=== PATIENT | female | born 1995 | race Hispanic/Latino ===

== ENCOUNTER 2018-09-05 10:51 | Emergency (ER) | payer OTHER ==
[2018-09-05 11:58] LABS: HCG,QUAL RESULT NEGATIVE (NEGATIVE)
[2018-09-05 11:59] LABS: APPEARANCE,URINE Clear (CLEAR); BILIRUBIN,URINE Negative (NEGATIVE); COLOR,URINE Yellow (YELLOW); GLUCOSE, URINE (UA) Negative (NEGATIVE); KETONES,URINE Negative (NEGATIVE); LEUKOCYTE ESTERASE ,URINE Negative (NEGATIVE); NITRATE,URINE Negative (NEGATIVE); OCCULT BLOOD,URINE Negative (NEGATIVE); PROTEIN,URINE Negative (NEGATIVE); UROBILINOGEN,URINE 0.2 mg/dL (0.2-1.0)
[2018-09-05] MEDS ORDERED: KETOROLAC TROMETHAMINE 60 MG/2 ML VIAL ONE (12:04)
== END 2018-09-05 12:33 | disposition home or self-care (01) ==
LOC: EDH 10:51
DX: M54.5 Low back pain (principal); Z98.890 Other specified postprocedural states
CPT/HCPCS: 72100; 81003; 81025; 96372; 99285; J1885

== ENCOUNTER 2018-11-14 15:43 | Emergency (ER) | payer OTHER ==
[2018-11-14 16:29] LABS: APPEARANCE,URINE Cloudy (CLEAR); BILIRUBIN,URINE Negative (NEGATIVE); COLOR,URINE Yellow (YELLOW); GLUCOSE, URINE (UA) Negative (NEGATIVE); HCG,QUAL RESULT NEGATIVE (NEGATIVE); KETONES,URINE Negative (NEGATIVE); LEUKOCYTE ESTERASE ,URINE Negative (NEGATIVE); NITRATE,URINE Negative (NEGATIVE); OCCULT BLOOD,URINE Negative (NEGATIVE); PROTEIN,URINE Negative (NEGATIVE); UROBILINOGEN,URINE 0.2 mg/dL (0.2-1.0)
[2018-11-14 16:39] LABS: BACTERIA,URINE Few /HPF (None Seen); RBC,URINE None Seen /HPF (0-1); WBC,URINE None Seen /HPF (0-1)
[2018-11-14] MEDS ORDERED: ORPHENADRINE CITRATE 30 MG/ML ML ONE (17:28)
[2018-11-14] MEDS ORDERED: KETOROLAC TROMETHAMINE 30MG/ML ONE (17:28)
== END 2018-11-14 17:49 | disposition home or self-care (01) ==
LOC: EDH 15:43
DX: S00.83XA Contusion of other part of head, initial encounter (principal); S60.042A Contusion of left ring finger without damage to nail, initial encounter; Z91.013 Allergy to seafood; V49.49XA Driver injured in collision with other motor vehicles in traffic accident, initial encounter; Y93.89 Activity, other specified; Y92.89 Other specified places as the place of occurrence of the external cause; Y99.8 Other external cause status
CPT/HCPCS: 70450; 73130; 81001; 81025; 96372 ×2; 99284; J1885; J2360

== ENCOUNTER 2022-02-02 10:29 | Observation (INO) | payer OTHER, MEDICAID ==
[~2022-02-02] VITALS: Ht 160 cm; Wt 126.6 kg
[~2022-02-02 10:29] MED LIST: CEPH500B PO
[2022-02-02] MEDS ORDERED: CELESTONE SOLUSPAN 6 MG/ML 5ML VIAL IM SCH (11:30)
[2022-02-02 11:34] LABS: APPEARANCE,URINE Cloudy (CLEAR); BILIRUBIN,URINE Negative (NEGATIVE); COLOR,URINE Yellow (YELLOW); GLUCOSE, URINE (UA) Negative (NEGATIVE); KETONES,URINE Negative (NEGATIVE); LEUKOCYTE ESTERASE ,URINE Moderate (NEGATIVE); NITRATE,URINE Negative (NEGATIVE); OCCULT BLOOD,URINE Negative (NEGATIVE); PH,URINE 6.5 (5.0-8.0); PROTEIN,URINE Negative (NEGATIVE); UROBILINOGEN,URINE 0.2 mg/dL (0.2-1.0)
[2022-02-02] MEDS ORDERED: CELESTONE SOLUSPAN 6 MG/ML 5ML VIAL ONE (11:53)
[2022-02-02 12:05] LABS: BACTERIA,URINE Moderate /HPF (None Seen); RBC,URINE 0-1 /HPF (0-1)
[2022-02-02] MEDS: LACTATED RINGERS 1000ML 1,000 ML IV PRN (21:55)
[2022-02-03] MEDS: LACTATED RINGERS 1000ML 1,000 ML IV PRN ×2 (02:32→06:58)
== END 2022-02-03 11:18 | disposition home or self-care (01) ==
LOC: INTOOBSV 10:29 → LDH 10:29
PROVIDERS: ADMIT Specialist; ATTEND Specialist
DX: O42.913 Preterm premature rupture of membranes, unspecified as to length of time between rupture and onset of labor, third trimester (principal); Z3A.34 34 weeks gestation of pregnancy
CPT/HCPCS: 59025; 76819; 81001; 87088; 96360; 96361 ×3; 96372; G0378 ×24; J0702; J7120 ×2

== ENCOUNTER 2022-02-05 05:17 | Observation (INO) | payer OTHER, MEDICAID ==
[~2022-02-05] VITALS: Ht 160 cm; Wt 1265.1 kg
[2022-02-05 05:19] VITALS: BP 122/53
[2022-02-05 05:57] LABS: APPEARANCE,URINE Clear (CLEAR); BILIRUBIN,URINE Negative (NEGATIVE); COLOR,URINE Yellow (YELLOW); GLUCOSE, URINE (UA) Negative (NEGATIVE); KETONES,URINE Negative (NEGATIVE); LEUKOCYTE ESTERASE ,URINE Negative (NEGATIVE); NITRATE,URINE Negative (NEGATIVE); OCCULT BLOOD,URINE Negative (NEGATIVE); PH,URINE 6.5 (5.0-8.0); PROTEIN,URINE Negative (NEGATIVE); UROBILINOGEN,URINE 0.2 mg/dL (0.2-1.0)
== END 2022-02-05 06:45 | disposition home or self-care (01) ==
LOC: EDH 05:17 → LDH 05:18 → EDH 05:26
PROVIDERS: ADMIT Specialist; ATTEND Specialist
DX: O36.8130 Decreased fetal movements, third trimester, not applicable or unspecified (principal); O26.893 Other specified pregnancy related conditions, third trimester; K59.00 Constipation, unspecified; Z3A.34 34 weeks gestation of pregnancy
CPT/HCPCS: 59025; 81003; G0378; G0379

== ENCOUNTER 2022-02-23 06:53 | Observation (INO) | payer OTHER, MEDICAID ==
[~2022-02-23] VITALS: Ht 160 cm; Wt 126.6 kg
[2022-02-23 06:55] VITALS: BP 132/65
[2022-02-23 07:43] LABS: APPEARANCE,URINE CLEAR (CLEAR); BILIRUBIN,URINE NEGATIVE (NEGATIVE); COLOR,URINE YELLOW (YELLOW); GLUCOSE, URINE (UA) NEGATIVE (NEGATIVE); KETONES,URINE NEGATIVE (NEGATIVE); LEUKOCYTE ESTERASE ,URINE NEGATIVE (NEGATIVE); NITRATE,URINE NEGATIVE (NEGATIVE); OCCULT BLOOD,URINE NEGATIVE (NEGATIVE); PROTEIN,URINE NEGATIVE (NEGATIVE); UROBILINOGEN,URINE 0.2 mg/dL (0.2-1.0)
[2022-03-08] MEDS ORDERED: FAMO20TA8 PO (00:06)
[2022-03-08] MEDS ORDERED: PREN1COM14 PO (00:06)
[2022-03-09] MEDS ORDERED: ACET-2079 PO (10:23)
== END 2022-02-23 08:37 | disposition home or self-care (01) ==
LOC: EDH 06:53 → LDH 06:54
PROVIDERS: ADMIT Specialist; ATTEND Specialist
DX: O42.913 Preterm premature rupture of membranes, unspecified as to length of time between rupture and onset of labor, third trimester (principal); Z3A.36 36 weeks gestation of pregnancy
CPT/HCPCS: 59025; 76819; 81003; 82120; G0378; G0379

== ENCOUNTER 2022-03-14 07:41 | Emergency (ER) | payer OTHER, MEDICAID ==
[~2022-03-14] VITALS: Ht 160 cm; Wt 125.2 kg
[~2022-03-14 07:41] MED LIST changes: +ACET-2079 PO; -CEPH500B PO; +PREN1COM14 PO
[2022-03-14 07:48] VITALS: BP 110/72
[2022-03-14] MEDS ORDERED: SULF1TAB42 PO (08:08)
[2022-03-14] MEDS ORDERED: ACET-2079 PO (08:08)
== END 2022-03-14 08:46 | disposition home or self-care (01) ==
LOC: EDH 07:41
DX: O90.0 Disruption of cesarean delivery wound (principal); R10.30 Lower abdominal pain, unspecified

== ENCOUNTER 2024-04-12 10:17 | Emergency (ER) | payer MEDICAID, OTHER ==
[~2024-04-12] VITALS: Ht 162.6 cm; Wt 126.6 kg
[~2024-04-12 10:17] MED LIST changes: +SULF1TAB42 PO
[2024-04-12 11:10] LABS: APPEARANCE,URINE CLOUDY (CLEAR); BILIRUBIN,URINE NEGATIVE (NEGATIVE); COLOR,URINE LIGHT-YELLOW (YELLOW); GLUCOSE, URINE (UA) NEGATIVE (NEGATIVE); KETONES,URINE NEGATIVE (NEGATIVE); LEUKOCYTE ESTERASE ,URINE 500 Leu/uL (NEGATIVE); NITRATE,URINE NEGATIVE (NEGATIVE); OCCULT BLOOD,URINE NEGATIVE (NEGATIVE); PH,URINE 5.5 (5.0-8.0); PROTEIN,URINE NEGATIVE (NEGATIVE); UROBILINOGEN,URINE 0.2 mg/dL (0.2-1.0)
[2024-04-12 11:19] LABS: ADD UA MICROSCOPIC YES
[2024-04-12 11:25] LABS: BACTERIA,URINE MOD /HPF (None Seen); MUCUS,URINE RARE LPF (None Seen); SQUAMOUS EPITHELIAL CELL,UR MOD /HPF (0-2)
[2024-04-12 11:29] LABS: BASOPHILS # (AUTO) 0.05 K/uL (0.00-0.20); BASOPHILS % (AUTO) 0.4 % (0.0-5.0); EOSINOPHILS # (AUTO) 0.23 K/uL (0.00-0.70); HEMATOCRIT 38.6 % (36-48); IMMATURE GRANULOCYTE ABSOLUTE 0.11 K/uL (0-1); LYMPHOCYTES # (AUTO) 2.7 K/uL (1.0-4.8); LYMPHOCYTES % (AUTO) 22.7 % (21.0-51.0); MEAN CORPUSCULAR HEMOGLOBIN 23.5 pg (27.0-33.0); MEAN CORPUSCULAR HGB CONC 31.9 g/dL (32.0-36.0); MEAN CORPUSCULAR VOLUME 73.7 fL (79-99); MONOCYTES # (AUTO) 0.9 K/uL (0.1-1.0); MONOCYTES % (AUTO) 7.9 % (3.0-13.0); NEUTROPHILS # (AUTO) 7.7 K/uL (1.8-7.7); NEUTROPHILS % (AUTO) 66.1 % (40.0-77.0); PLATELET COUNT (AUTO) 469 K/uL (130-400); RED BLOOD CELL COUNT(AUTO) 5.24 MIL/uL (4.00-5.50); RED CELL DISTRIBUTION WIDTH 15.9 % (11.0-15.5); WHITE BLOOD COUNT (AUTO) 11.7 K/uL (4.8-10.8)
[2024-04-12 11:49] LABS: CREATININE 0.8 mg/dL (0.5-1.0); POTASSIUM 4.5 mmol/L (3.5-5.1)
[2024-04-12 11:54] LABS: ALBUMIN 3.5 g/dL (3.5-5.0); BILIRUBIN,TOTAL 0.2 mg/dL (0.2-1.0); TOTAL PROTEIN, SERUM 7.8 g/dL (6.0-8.3)
[2024-04-12 12:29] VITALS: BP 129/65; PULSE 72; RESP 15
[2024-04-12] MEDS: ONDANSETRON ODT 4MG TAB SL ONE (12:42)
[2024-04-12] MEDS: CEFTRIAXONE 1G VIAL IM ONE (12:42)
[2024-04-12] MEDS ORDERED: ONDA4TAB10 PO (15:27)
[2024-04-12] MEDS ORDERED: NITR100C PO (15:27)
[2024-04-12] MEDS ORDERED: PHEN-846 PO ×2 (15:27→16:59)
[2024-04-12] MEDS ORDERED: FLUC200T PO (15:29)
[2024-04-12] MEDS ORDERED: FLUC100T PO (16:59)
== END 2024-04-12 15:44 | disposition home or self-care (01) ==
LOC: EDH 10:17
DX: R10.2 Pelvic and perineal pain (principal); R10.31 Right lower quadrant pain
CPT/HCPCS: 99285; 76857; 80053; 85025; 87088; 81001; 81025; 36415; 96372; J0696

== ENCOUNTER 2025-04-09 23:03 | Emergency (ER) | payer SELFPAY ==
[~2025-04-09] VITALS: Ht 160 cm; Wt 123.4 kg
[~2025-04-09 23:03] MED LIST changes: +FLUC100T PO; +NITR100C PO; +ONDA-243 PO; +PHEN-846 PO
--- NOTE | 2025-04-09 23:06 | ERN ---
ED Note History of Present Illness Stated Complaint: DIZZINESS, FEELS LIKE PASSING OUT AFTER EATING MENA Chief Complaint: Dizzy/Light Headed Time Seen by MD: 23:06 Time Seen by Midlevel: 23:06 Dictation: Ms. Palafox is a 30-year-old female with history of depression who was transported via EMS to the emergency department this evening for evaluation dizziness. She states that she was out with her girlfriends and had a small bite of a THC gummy. She states that she immediately felt anxious and dizzy. She states "I felt like passing out" and got very nauseated. She states she has a history of depression and takes sertraline. She denies having fever, chills, shortness of breath, cough, chest pain, palpitations, edema, abdominal pain, vomiting, diarrhea, dysuria, headache, or seizure. Allergies: Coded Allergies: No Known Drug Allergies (Unverified Allergy, Unknown, 02/02/22) Emergency Care [place]: None Home Meds Active Scripts Ondansetron (Ondansetron Odt) 4 Mg Tab.rapdis, 4 MG PO Q6HPRN PRN for nausea, #15 TAB 0 Refills Prov:MAXWELL VILLARREAL NP 04/10/25 Ondansetron (Ondansetron Odt) 4 Mg Tab.rapdis, 4 MG PO Q6HPRN PRN for nausea, #15 TAB 0 Refills Prov:MAXWELL VILLARREAL NP 04/12/24 Phenazopyridine HCl (Pyridium) 100 Mg Tab, 100 MG PO q8hour PRN, #10 TAB 0 Refil ls Prov:MAXWELL VILLARREAL NP 04/12/24 Nitrofurantoin Macrocrystal (Nitrofurantoin) 100 Mg Capsule, 100 MG PO BID for 7 Days, #14 CAP 0 Refills Prov:MAXWELL VILLARREAL NP 04/12/24 Fluconazole (Diflucan) 100 Mg Tablet, 150 MG PO ONCE, #1 TAB 1 Refill Prov:MAXWELL VILLARREAL NP 04/12/24 Acetaminophen with Codeine (Acetaminophen-Cod #3 Tablet) 1 Each Tablet, 1-2 TAB PO Q6H PRN for SEVERE PAIN (7-10), #12 TAB 0 Refills Prov:BELEM STILES MD 03/14/22 Sulfamethoxazole/Trimethoprim (Bactrim Ds Tablet) 1 Each Tablet, 1 TAB PO BID for 7 Days, #14 TAB 0 Refills Prov:BELEM STILES MD 03/14/22 Reported Medications Acetaminophen with Codeine (Acetaminophen-Cod #3 Tablet) 1 Each Tablet, 1-2 EACH PO Q4-6, #20 TAB 03/09/22 Cmb#95/Iron/FA/Dha ( + Dha Combo Pack) 1 Each Combo..pkg, 1 EACH PO AM, COMB.PKG 03/08/22 Past Medical History Past Medical History: No Pertinent History Surgical History: Social History: Negative, Other : 2 Para: 1 Aborts: 1 RN Note Reviewed/Agreed w/PFSH: Yes Review of System Dictation REVIEW OF SYSTEMS: CONSTITUTIONAL: Patient denies fevers, chills, sweats and weight changes. Reports fatigue and general weakness. EYES: Patient denies any visual symptoms. EARS, NOSE, AND THROAT: No difficulties with hearing. No symptoms of rhinitis or sore throat. CARDIOVASCULAR: Patient denies chest pains, palpitations, orthopnea and paroxysmal nocturnal dyspnea. RESPIRATORY: No dyspnea on exertion, no wheezing or cough. GI: No vomiting, diarrhea, constipation, abdominal pain, hematochezia or melena. Reported nausea : No urinary hesitancy or dribbling. No nocturia or urinary frequency. No abnormal urethral discharge. MUSCULOSKELETAL: No myalgias or arthralgias. NEUROLOGIC: No chronic headaches, no seizures. Patient denies numbness, tingling or weakness. PSYCHIATRIC: Patient denies problems with mood disturbance. Reported feeling anxious after taking THC gummy. ENDOCRINE: No excessive urination or excessive thirst. DERMATOLOGIC: Patient denies any rashes or skin changes. Initial Vital Sign VS Vital Signs Date Time Temp Pulse Resp B/P (MAP) Pulse Ox O2 Delivery O2 Flow Rate FiO2 04/09/25 23:06 99.1 99 16 135/74 98 Room Air 0 04/10/25 00:50 21 Physical Exam Dictation Vital signs: Reviewed. Temp 99 Constitutional: Slightly anxious. Head/Face: Normocephalic, atraumatic. Eyes: Periorbital areas with no swelling, redness, or edema. Lids and lashes are normal. Conjunctival injection is absent. Sclera anicteric. Pupils equal, round, reactive to light. ENT: Pinnas intact and no signs of trauma or erythema. Ear canals clear and no discharge. TMs no erythema. No nasal discharge or bleeding noted. Oropharynx with no exudate, redness, swelling, masses, exudates, or evidence of obstruction. Uvula midline. Mucous membranes moist. Neck: Trachea midline, no masses palpated, and no cervical lymphadenopathy. No swelling. Supple, full range of motion. Chest/Axilla: No tenderness, no crepitus, no paradoxical movement, no retractions. Cardiovascular: Regular rate, regular rhythm, no murmur, no gallops. Symmetric pulses. No peripheral edema. Normotensive. No tachycardia: Heart rate 70 Respiratory: Respirations even and unlabored. Lung sounds clear; no wheezes, rales or rhonchi. Room air SpO2 99% Gastrointestinal: Inspection is normal. No distention is appreciated. Bowel sounds are normal. No mass or organomegaly . There is no tenderness. No rebound. No rigidity. No voluntary or involuntary guarding. No Laboy's sign. Neurological: Normal speech, gross motor function intact, gross sensory function intact. No focal weakness/Paresthesia. Musculoskeletal/Extremities: All extremities have full range of motion, no pain or tenderness on palpation. Symmetric pulses. Integumentary: Intact. Skin is normal color, warm and dry. Cap refill less than 2 seconds. ED Course ED Course Orders Procedure Category Date Status Time Lorazepam 1 Mg PHA 04/09/25 Complete (Ativan) 23:30 0.9%Nacl 1000ml (Ns PHA 04/09/25 Complete 1000ml) 23:30 Ondansetron Odt 4mg PHA 04/10/25 Complete Tab (Zofran 4mg Odt) 01:00 Ondansetron Odt 4mg PHA 04/10/25 Complete Tab (Zofran 4mg Odt) 00:46 Current Medications Medications (Trade) Dose Ordered Sig/Ori Route PRN Reason Start Time Stop Time Status Last Admin Dose Admin Lorazepam (AtiVAN) 1 mg ONCE ONCE PO 04/09/25 23:30 04/09/25 23:31 DC 04/09/25 23:41 Ondansetron HCl (zoFRAN 4MG ODT) 4 mg ONCE ONCE SL 04/10/25 01:00 04/10/25 00:56 DC 04/10/25 00:49 Ondansetron HCl (zoFRAN 4MG ODT) 4 mg STK-MED ONCE .ROUTE 04/10/25 00:46 04/10/25 00:46 DC Sodium Chloride 1,000 ml @ 0 mls/hr ONCE ONCE IV 04/09/25 23:30 04/09/25 23:31 DC Vital Signs Date Time Temp Pulse Resp B/P (MAP) Pulse Ox O2 Delivery O2 Flow Rate FiO2 04/10/25 00:50 98.2 92 16 132/72 99 Room Air* 0 21 04/09/25 23:06 99.1 99 16 135/74 98 Room Air 0 Uneventful ED course. Patient initially anxious. She is given dose Ativan 1 mg. She was offered IV fluids 1 L but declined. She received dose Zofran ODT. She has been able to take p.o. fluids well. Vital signs stable. She states she is feeling better, is tired, and wants to go home. Medical Decision Making MDM MDM: Differential diagnosis: Drug ingestion, adverse reaction to THC, anxiety Rationale: Tests considered and ordered secondary to shared decision making include: Exam Previous outside records reviewed: Old ER visits. Risk of complication and/or morbidity or mortality of patient management: None Medications-Per medication reconciliation Need for hospitalization: Patient does not meet criteria for hospitalization. Need for emergency major/minor surgery: No There are no social concerns with this patient. Prescription drug management: Zofran Prescriptions will include symptomatic care Patient's prior external medical records from other ER visits were reviewed by me as indicated. Prior testing and results from previous visits were reviewed. Prior tests were taken into account with medical decision making and resource utilization, independent historian/historians were used to obtain complete medical history. I independently interpreted the test that were performed, results were reviewed by me and considered findings on radiology if ordered. Medical management and examination interpretation discussions were had by me with other qualified healthcare professionals as indicated for the patient's care. DX & DISP Disposition: Discharge Departure Impression: Primary Impression: Tetrahydrocannabinol (THC) use disorder, mild, abuse Condition: Stable Scripts Ondansetron (Ondansetron Odt) 4 Mg Tab.rapdis 4 MG PO Q6HPRN PRN for nausea, #15 TAB 0 Refills Prov: MAXWELL VILLARREAL [employer] 04/10/25 Additional Instructions: Rest. Drink plenty of fluids. May take Zofran ODT every 6-8 hours as needed for nausea. Avoid any medications/recreational drugs that are not prescribed to you. Return to the emergency department for any worsening of symptoms or concerns. Follow up with your PCP. Referrals: NONE (PCP) Time of Disposition: 00:43 MAXWELL VILLARREAL NP April 09, 2025 23:06 MONAE RIVER DO April 10, 2025 02:58
[2025-04-09] MEDS: LORazepam 1 MG TABLET PO ONE (23:41)
[2025-04-09] MEDS: 0.9%NACL 1000ML 1,000 ML IV ONE (23:46)
--- NOTE | 2025-04-09 23:57 | NUR ---
PATIENT DRINKING WATER WITHOUT DIFFICULTY, REFUSED IV
[2025-04-10] MEDS: ondanSETRON ODT 4MG TAB SL ONE (00:49)
[2025-04-10] MEDS: ondanSETRON ODT 4MG TAB ONE (00:49)
[2025-04-10 00:50] VITALS: BP 132/72; PULSE 92; RESP 16; TEMP 98.3; O2SAT 99
== END 2025-04-10 00:55 | disposition home or self-care (01) ==
LOC: EDH 23:03
DX: F12.10 Cannabis abuse, uncomplicated (principal); Z79.899 Other long term (current) drug therapy; Z98.890 Other specified postprocedural states
CPT/HCPCS: 99283